=== PATIENT | female | born 1995 | race Two or more races ===

== ENCOUNTER 2018-12-23 23:13 | Emergency (ER) | payer OTHER ==
[~2018-12-23] VITALS: Ht 162.6 cm; Wt 48.5 kg
[2018-12-23] MEDS ORDERED: ROCALTROL0.25 MCG (23:19)
[2018-12-23] MEDS ORDERED: VITAMIN D400 UNI2 (23:19)
[2018-12-23] MEDS ORDERED: SYNTHROID200 MCG (23:19)
== END 2018-12-24 01:14 | disposition home or self-care (01) ==
LOC: ER 23:13
DX: K08.89 Other specified disorders of teeth and supporting structures (principal)